=== PATIENT | female | born 1960 | race Caucasian/White ===

== ENCOUNTER 2017-03-22 10:26 | Emergency (ER) | payer BC ==
[2017-03-22] MEDS ORDERED: Aspirin Low Dose CHEW TAB* 81 MG PO ONE (11:19)
[2017-03-22 11:46] LABS: Hematocrit 41 % (35-47); Hemoglobin 13.7 g/dl (12.0-16.0); Mean Corpuscular HGB Conc 34 g/dl (31-36); Mean Corpuscular Hemoglobin 31 pg (27-31); Mean Corpuscular Volume 92 fL (80-97); Mean Platelet Volume 9 um3 (7.4-10.4); Red Blood Count 4.43 10^6/ul (4.0-5.4); Red Cell Distribution Width 12 % (10.5-15); White Blood Count 4.2 10^3/ul (3.5-10.8)
--- NOTE | 2017-03-22 11:58 | RAD ---
HISTORY: Chest pain COMPARISONS: None VIEWS: 1: frontal portable view of the chest at 11:40 AM FINDINGS: LINES AND TUBES: None. CARDIOMEDIASTINAL SILHOUETTE: The cardiomediastinal silhouette is normal for portable technique. PLEURA: The costophrenic angles are sharp. No pleural abnormalities are noted. LUNG PARENCHYMA: The lungs are clear. ABDOMEN: The upper abdomen is clear. There is no subphrenic gas. BONES AND SOFT TISSUES: No bone or soft tissue abnormalities are noted. IMPRESSION: NO ACTIVE CARDIOPULMONARY DISEASE.
[2017-03-22 12:04] LABS: Albumin 3.9 g/dL (3.2-5.2); BUN/Creatinine Ratio 19.4 (8-20); Calcium 9.3 mg/dL (8.6-10.3); EGFR African American 106.6 (>60); EGFR Non-African American 82.9 (>60); Globulin 2.7 g/dL (2-4); Potassium 3.8 mmol/L (3.5-5.0); Total Bilirubin 0.7 mg/dL (0.2-1.0); Total Protein 6.6 g/dL (6.4-8.9)
[2017-03-22 14:50] VITALS: BP 137/88
--- NOTE | 2017-03-22 18:51 | ED ---
Sanya Shell Nilda, scribed for Eric Mendoza MD on 03/22/17 at 1117 . HPI Chest Pain - HPI Summary HPI Summary: This patient is a 57 year old F presenting to [facility] accompanied by family members with a chief complaint of sharp intermittent mid-sternal chest pain that radiates to back since this morning. Symptoms aggravated by recumbent position and alleviated by nothing. Patient denies nausea and dyspnea. She is currently on thyroid medication and Metformin. Two nights ago patient awoke to similar CP that was accompanied by diaphoresis and anxiety, but eventually resolved spontaneously. - History of Current Complaint Chief Complaint: EDChestPainROMI Time Seen by Provider: 03/22/17 11:01 Hx Obtained From: Patient Onset/Duration: Still Present Timing: Intermittent Current Severity: Mild Pain Intensity: 0 Pain Scale Used: 0-10 Numeric Chest Pain Location: Mid Sternal Chest Pain Radiates: Yes Chest Pain Radiates To:: Back Character: Sharp/Stabbing Aggravating Factor(s): Recumbent Position Alleviating Factor(s): Nothing Associated Signs and Symptoms: Positive: Other: - negative dyspnea. Negative: Nausea Related History: Similar Episode/Dx as: - Two nights ago patient was awoke to similar CP that was accompanied by diaphoresis and anxiety, but eventually resolved spontaneously. - Allergy/Home Medications Allergies/Adverse Reactions: Allergies Allergy/AdvReac Type Severity Reaction Status Date / Time No Known Allergies Allergy Verified 03/22/17 11:01 PMH/Surg Hx/FS Hx/Imm Hx Endocrine/Hematology History: Reports: Hx Diabetes - Pre-diabetic, Hx Thyroid Disease Sensory History: Denies: Hx Legally Blind EENT History: Denies: Hx Deafness Infectious Disease History: Yes Infectious Disease History: Denies: Traveled Outside the [place] in Last 30 Days - Family History Known Family History: Negative: Hypertension, Diabetes - Social History Alcohol Use: Rare Substance Use Type: Reports: None Smoking Status (MU): Never Smoked Tobacco Review of Systems Positive: Skin Diaphoresis - two nights ago, resolved Positive: Chest Pain Positive: Other - negative dyspnea Negative: Nausea Positive: Other - back pain Positive: Anxious - 2 nights ago, resolved All Other Systems Reviewed And Are Negative: Yes Physical Exam Triage Information Reviewed: Yes Vital Signs On Initial Exam: Initial Vitals Temp Pulse Resp BP Pulse Ox 98.2 F 81 18 129/77 99 03/22/17 10:26 03/22/17 10:26 03/22/17 10:26 03/22/17 10:26 03/22/17 10:26 Vital Signs Reviewed: Yes Appearance: Positive: Well-Appearing, No Pain Distress Skin: Positive: Warm, Skin Color Reflects Adequate Perfusion, Dry Head/Face: Positive: Normal Head/Face Inspection Eyes: Positive: Normal ENT: Positive: Normal ENT inspection Neck: Positive: Supple, Nontender Respiratory/Lung Sounds: Positive: Clear to Auscultation, Breath Sounds Present Cardiovascular: Positive: RRR Abdomen Description: Positive: Nontender, Soft Bowel Sounds: Positive: Present Musculoskeletal: Positive: Normal Neurological: Positive: Normal Psychiatric: Positive: Normal, Affect/Mood Appropriate - Hailey Coma Scale Coma Scale Total: 15 Diagnostics - Vital Signs Vital Signs Temp Pulse Resp BP Pulse Ox 03/22/17 10:26 98.2 F 81 18 129/77 99 - Laboratory Lab Results: Lab Results 03/22/17 03/22/17 03/22/17 Range/Units 11:32 11:32 11:32 WBC 4.2 (3.5-10.8) 10^3/ul RBC 4.43 (4.0-5.4) 10^6/ul Hgb 13.7 (12.0-16.0) g/dl Hct 41 (35-47) % MCV 92 (80-97) fL MCH 31 (27-31) pg MCHC 34 (31-36) g/dl RDW 12 (10.5-15) % Plt Count 196 (150-450) 10^3/ul MPV 9 (7.4-10.4) um3 Neut % (Auto) 65.3 (38-83) % Lymph % (Auto) 26.1 (25-47) % [place] % (Auto) 6.8 (1-9) % Eos % (Auto) 0.4 (0-6) % Baso % (Auto) 1.4 (0-2) % Absolute Neuts (auto) 2.7 (1.5-7.7) 10^3/ul Absolute Lymphs (auto) 1.1 (1.0-4.8) 10^3/ul Absolute Monos (auto) 0.3 (0-0.8) 10^3/ul Absolute Eos (auto) 0 (0-0.6) 10^3/ul Absolute Basos (auto) 0.1 (0-0.2) 10^3/ul Absolute Nucleated RBC 0 10^3/ul Nucleated RBC % 0.1 D-Dimer, Quantitative < 200 (Less Than 230) ng/mL Sodium 136 (133-145) mmol/L Potassium 3.8 (3.5-5.0) mmol/L Chloride 101 (101-111) mmol/L Carbon Dioxide 31 (22-32) mmol/L Anion Gap 4 (2-11) mmol/L BUN 14 (6-24) mg/dL Creatinine 0.72 (0.51-0.95) mg/dL Est GFR ( Amer) 106.6 (>60) Est GFR (Non-Af Amer) 82.9 (>60) BUN/Creatinine Ratio 19.4 (8-20) Glucose 97 (70-100) mg/dL Lactic Acid (0.5-2.0) mmol/L Calcium 9.3 (8.6-10.3) mg/dL Total Bilirubin 0.70 (0.2-1.0) mg/dL AST 19 (13-39) U/L ALT 13 (7-52) U/L Alkaline Phosphatase 55 (34-104) U/L Troponin I 0.00 (<0.04) ng/mL Total Protein 6.6 (6.4-8.9) g/dL Albumin 3.9 (3.2-5.2) g/dL Globulin 2.7 (2-4) g/dL Albumin/Globulin Ratio 1.4 (1-3) 03/22/17 03/22/17 Range/Units 11:32 14:25 WBC (3.5-10.8) 10^3/ul RBC (4.0-5.4) 10^6/ul Hgb (12.0-16.0) g/dl Hct (35-47) % MCV (80-97) fL MCH (27-31) pg MCHC (31-36) g/dl RDW (10.5-15) % Plt Count (150-450) 10^3/ul MPV (7.4-10.4) um3 Neut % (Auto) (38-83) % Lymph % (Auto) (25-47) % [place] % (Auto) (1-9) % Eos % (Auto) (0-6) % Baso % (Auto) (0-2) % Absolute Neuts (auto) (1.5-7.7) 10^3/ul Absolute Lymphs (auto) (1.0-4.8) 10^3/ul Absolute Monos (auto) (0-0.8) 10^3/ul Absolute Eos (auto) (0-0.6) 10^3/ul Absolute Basos (auto) (0-0.2) 10^3/ul Absolute Nucleated RBC 10^3/ul Nucleated RBC % D-Dimer, Quantitative (Less Than 230) ng/mL Sodium (133-145) mmol/L Potassium (3.5-5.0) mmol/L Chloride (101-111) mmol/L Carbon Dioxide (22-32) mmol/L Anion Gap (2-11) mmol/L BUN (6-24) mg/dL Creatinine (0.51-0.95) mg/dL Est GFR ( Amer) (>60) Est GFR (Non-Af Amer) (>60) BUN/Creatinine Ratio (8-20) Glucose (70-100) mg/dL Lactic Acid 2.4 H* (0.5-2.0) mmol/L Calcium (8.6-10.3) mg/dL Total Bilirubin (0.2-1.0) mg/dL AST (13-39) U/L ALT (7-52) U/L Alkaline Phosphatase (34-104) U/L Troponin I 0.00 (<0.04) ng/mL Total Protein (6.4-8.9) g/dL Albumin (3.2-5.2) g/dL Globulin (2-4) g/dL Albumin/Globulin Ratio (1-3) Result Diagrams: 03/22/17 11:32 03/22/17 11:32 Lab Statement: Any lab studies that have been ordered have been reviewed, and results considered in the medical decision making process. - Radiology CXR Radiology Interpretation Completed By: Radiologist - No active cardiopulmonary disease. ED Physician reviewed this report and agrees. - EKG 1026 Cardiac Rate: NL - 83 bpm EKG Rhythm: Sinus Rhythm ST Segment: Normal 1356 Cardiac Rate: NL - 62 bpm EKG Rhythm: Sinus Rhythm ST Segment: Normal Re-Evaluation - Re-Evaluation First Eval Re-Evaluation Time: 14:57 Comment: Patient feels better. ED Physician discussed plans to discharge her. Patient is agreeable with this plan. Chest Pain Course/Dx - Course Course Of Treatment: Ms. Arzola has had a couple episodes of CP into her back that has happened when she is lying down and woke her up once. Her W/U was negative here and this may be radicular or GI. - Diagnoses Provider Diagnoses: Chest pain Discharge - Discharge Plan Condition: Stable Disposition: HOME Patient Education Materials: Chest Pain (ED) Referrals: [facility] REFERRAL [Outside] - 1 Week Additional Instructions: Follow up with your primary care physician in 1 week. RETURN TO THE EMERGENCY DEPARTMENT FOR CHANGING OR WORSENING SYMPTOMS. The documentation as recorded by the Sanya perez Nilda accurately reflects the service I personally performed and the decisions made by me, Eric Mendoza MD.
== END 2017-03-22 15:07 | disposition home or self-care (01) ==
LOC: ED 10:26
DX: R07.9 Chest pain, unspecified (principal); M54.9 Dorsalgia, unspecified; F41.9 Anxiety disorder, unspecified
CPT/HCPCS: 36415; 71010; 80053; 83605; 84484; 85025; 85379; 93005; 99283; A9270-GY